=== PATIENT | female | born 1935 | race Caucasian/White ===

== ENCOUNTER → 2017-10-04 | Outpatient (CLI) | payer MEDICARE, OTHER ==
[~2017-10-04] MED LIST: COUMADIN7.5 MG PO; JANTOVEN10 MG PO; NORCO 5-325 TA1 EACH PO; TRAMADOL 50 MG50 MG PO; XARELTO15 MG PO; XARELTO20 MG PO
== END ==
LOC: M.RAD 10-03 07:45
DX: Z12.31 Encounter for screening mammogram for malignant neoplasm of breast (principal); N91.2 Amenorrhea, unspecified; Z78.0 Asymptomatic menopausal state

== ENCOUNTER → 2019-01-14 | Outpatient (CLI) | payer MEDICARE, OTHER | LOC: M.RAD 09:18 | DX: Z12.31 Encounter for screening mammogram for malignant neoplasm of breast (principal) ==